=== PATIENT | male | born 1970 | race Caucasian/White ===

== ENCOUNTER → 2017-05-09 | Outpatient (CLI) | payer BC ==
[2017-05-09 07:59] LABS: B-HCG QUANTITATIVE < 1 mIU/mL (<3); CARBON DIOXIDE 29 mEq/L (21-32); CHLORIDE 104 mEq/L (98-107); HDL CHOLESTEROL 66 mg/dL (40-59); LDL CHOLESTEROL 89 mg/dL (5-100); T4 FREE 1.07 ng/dL (0.76-1.46)
== END | disposition home or self-care (01) ==
LOC: LAB 07:13
PROVIDERS: ATTEND Internal Medicine Critical Care Medicine
DX: C62.90 Malignant neoplasm of unspecified testis, unspecified whether descended or undescended (principal)
CPT/HCPCS: 36415; 80048; 80061; 80076; 82105; 84439; 84702

== ENCOUNTER → 2019-03-12 | Outpatient (CLI) | payer BC ==
[2019-03-12 07:01] LABS: HEMATOCRIT. 47.8 % (42.0-52.0); HEMOGLOBIN. 16.4 g/dL (14.0-18.0); LYMPHOCYTES % 30.4 % (20.0-50.0); MEAN CORPUSCULAR HEMOGLOBIN 31.3 pg (28.0-32.0); MEAN CORPUSCULAR VOLUME 91.5 fL (80.0-94.0); MONOCYTES % 8.7 % (2.0-8.0); NEUTROPHILS % 55.9 % (40.0-76.0); PLATELET 252 x1000/uL (130-400); RED BLOOD CELL COUNT 5.23 mill/uL (4.7-6.1); RED CELL DISTRIBUTION WIDTH 13.6 % (11.6-14.6)
[2019-03-12 08:16] LABS: CHLORIDE 107 mEq/L (98-107)
[2019-03-12 09:17] LABS: HDL CHOLESTEROL 52 mg/dL (40-59)
[2019-03-12 09:33] LABS: LDL CHOLESTEROL 113 mg/dL (5-100)
== END | disposition home or self-care (01) ==
LOC: LAB 06:29
PROVIDERS: ATTEND Internal Medicine Critical Care Medicine
DX: I10 Essential (primary) hypertension (principal); E78.5 Hyperlipidemia, unspecified; E11.9 Type 2 diabetes mellitus without complications
CPT/HCPCS: 36415; 80061; 83036; 84443

== ENCOUNTER → 2019-09-29 | Outpatient (CLI) | payer BC ==
[~2019-09-29] MED LIST: DIATR MEGLU/DIATRIZOATE SOLN 30ML ONE
== END | disposition home or self-care (01) ==
LOC: CT 13:03
PROVIDERS: ATTEND Internal Medicine Critical Care Medicine
DX: N28.1 Cyst of kidney, acquired (principal); K42.9 Umbilical hernia without obstruction or gangrene; K80.80 Other cholelithiasis without obstruction; J84.10 Pulmonary fibrosis, unspecified; M47.817 Spondylosis without myelopathy or radiculopathy, lumbosacral region
CPT/HCPCS: 74176; Q9963

== ENCOUNTER → 2022-03-30 | Outpatient (CLI) | payer BC ==
[2022-03-30 07:23] LABS: BASOPHILS % 1.4 % (0.0-2.0); HEMATOCRIT. 46.6 % (42.0-52.0); HEMOGLOBIN. 16.1 g/dL (14.0-18.0); MEAN CORPUSCULAR HEMOGLOBIN 30.8 pg (28.0-32.0); MEAN CORPUSCULAR VOLUME 88.9 fL (80.0-94.0); MEAN PLATELET VOLUME 7.6 fl (7.4-10.4); MONOCYTES % 9.7 % (2.0-8.0); NEUTROPHILS % 53.9 % (40.0-76.0); PLATELET 289 x1000/uL (130-400); RED BLOOD CELL COUNT 5.24 mill/uL (4.7-6.1); RED CELL DISTRIBUTION WIDTH 13.7 % (11.6-14.6)
[2022-03-30 07:25] LABS: CHLORIDE 105 mEq/L (98-107)
[2022-03-30 07:43] LABS: C REACTIVE PROTEIN QUANT 1.6 mg/L (0.0-3.0); HDL CHOLESTEROL 58 mg/dL (40-59); LDL CHOLESTEROL 92 mg/dL (5-100); T4 FREE 1.05 ng/dL (0.76-1.46)
[2022-03-30 07:54] LABS: PROSTRATE SPECIFIC AG TOTAL 0.48 ng/mL (0.0-4.0)
[2022-03-30 07:56] LABS: TRIOIODOTHYRONINE TOTAL 1.16 ng/ml (0.60-1.81)
== END | disposition home or self-care (01) ==
LOC: LAB 06:51
PROVIDERS: ATTEND Internal Medicine Critical Care Medicine
DX: E88.81 Metabolic syndrome and other insulin resistance (principal); E78.9 Disorder of lipoprotein metabolism, unspecified; R97.8 Other abnormal tumor markers
CPT/HCPCS: 36415; 80053; 80061; 82105; 84153; 84439; 84443; 84480; 85025; 86140; G0103

== ENCOUNTER → 2022-06-21 | Outpatient (CLI) | payer BC | END | disposition home or self-care (01) | LOC: US 06-20 11:12 | PROVIDERS: ATTEND Internal Medicine Critical Care Medicine | DX: I65.22 Occlusion and stenosis of left carotid artery (principal); I34.9 Nonrheumatic mitral valve disorder, unspecified | CPT/HCPCS: 93880 ==

== ENCOUNTER → 2024-07-30 | Outpatient (CLI) | payer BC ==
[2024-07-30 09:00] LABS: CHLORIDE 110 mEq/L (98-107); POTASSIUM 4.2 mEq/L (3.5-5.1); SODIUM 141 mEq/L (136-145)
[2024-07-30 09:01] LABS: CALCIUM 9.7 mg/dL (8.7-10.4); CARBON DIOXIDE 30 mEq/L (21-32)
[2024-07-30 09:06] LABS: GLUCOSE 99 mg/dL (70-105); TRIGLYCERIDE 79 mg/dL (0-150); UREA NITROGEN BLOOD 21 mg/dL (9-23)
[2024-07-30 09:07] LABS: LDL CHOLESTEROL 70 mg/dL (5-100)
[2024-07-30 09:08] LABS: ALANINE AMINOTRANSFERASE 36 IU/L (10-49); ALBUMIN 4.7 g/dL (3.2-4.8); ASPARTATE AMINOTRANSFERASE 22 IU/L (<34); CHOLESTEROL 154 mg/dL (<200); HDL CHOLESTEROL 67 mg/dL (>55)
[2024-07-30 09:09] LABS: BILIRUBIN TOTAL 1.3 mg/dL (0.1-1.0)
[2024-07-30 09:10] LABS: T4 FREE 1.44 ng/dL (0.89-1.76); THYROID STIMULATING HORMONE 1.33 uIU/mL (0.55-4.78)
[2024-07-30 09:29] LABS: BASOPHILS % 1.1 % (0.0-2.0); EOSINOPHILS % 2.6 % (0.0-5.0); HEMOGLOBIN. 16.4 g/dL (14.0-18.0); LYMPHOCYTES % 29.9 % (20.0-50.0); MEAN CORPUSCULAR HEMOGLOBIN 31.9 pg (28.0-32.0); MEAN CORPUSCULAR HGB CONC 33.4 g/dL (31.0-37.0); MEAN CORPUSCULAR VOLUME 95.5 fL (80.0-94.0); MEAN PLATELET VOLUME 9.1 fl (7.4-10.4); NEUTROPHILS % 59.4 % (40.0-76.0); PLATELET 246 x1000/uL (130-400); RED BLOOD CELL COUNT 5.13 mill/uL (4.7-6.1); RED CELL DISTRIBUTION WIDTH 12.8 % (11.6-14.6); WHITE BLOOD COUNT 4.8 x1000/uL (4.5-11.0)
[2024-07-31 08:08] LABS: ALPHA FETOPROTEIN TUMOR MARKER < 1.8 ng/mL (0.0-8.4); PROSTATE SPECIFIC AG TOTAL 0.5 ng/mL (0.0-4.0); VITAMIN D 25-OH 39.2 ng/mL (30.0-100.0)
== END | disposition home or self-care (01) ==
LOC: EDSTATUS 07-29 06:10 → CARD 06:12
PROVIDERS: ATTEND Internal Medicine Critical Care Medicine
DX: Z00.00 Encounter for general adult medical examination without abnormal findings (principal); I08.3 Combined rheumatic disorders of mitral, aortic and tricuspid valves; I10 Essential (primary) hypertension
CPT/HCPCS: 36415; 80053; 80061; 82105; 82306; 84153; 84439; 84443; 84481; 85025; 93306